=== PATIENT | female | born 1945 | race Caucasian/White ===

== ENCOUNTER 2017-01-19 06:45 | Day surgery (SDC) | payer MEDICARE, BC ==
--- NOTE | 2016-12-25 10:29 | HP ---
PREOPERATIVE HISTORY AND PHYSICAL: DATE OF ADMISSION/SURGERY: 01/19/17 [facility] DATE OF OFFICE VISIT/ENCOUNTER: 12/24/16 ATTENDING SURGEON: Nora Hernandez MD PROCEDURE: Right wrist ganglion cyst excision and carpal tunnel release. CHIEF COMPLAINT: Mass, right wrist; numbness and tingling, right hand. HISTORY OF PRESENT ILLNESS: This is a 71-year-old female who complains of numbness and tingling in her bilateral hands, worse on the right than on the left, and also a mass in her right wrist. She had a carpal tunnel release bilaterally back in 2002 and her symptoms resolved completely, but started up again approximately 6 months ago and are gradually getting worse. She has symptoms during the day as well as at night that awaken her. The mass has also gradually become more bothersome. She would like to have the mass removed and a redo carpal tunnel release on the right. PAST MEDICAL HISTORY: 1. Diabetes, type 2. 2. Hypercholesterolemia. 3. Depression. 4. Hypertension. 5. Diverticulitis. 6. History of anemia. PAST SURGICAL HISTORY: 1. Bilateral carpal tunnel release in 2002. 2. Shock wave kidney stone surgery in 2012. 3. Right total knee arthroplasty in 2010. 4. Partial thyroidectomy. 5. Hammertoe correction. 6. Cardiac catheterization in 2005. 7. Hysterectomy. MEDICATIONS: 1. Amitriptyline HCl 10 mg 2 tabs daily. 2. Bentyl 10 mg 1 tab t.i.d. 3. Calcium 600 plus vitamin D daily. 4. Cinnamon capsule daily. 5. Gabapentin 600 mg 2 to 3 tabs daily. 6. Glipizide 10 mg daily. 7. Ibuprofen 800 mg t.i.d. p.r.n. 8. Lipitor 40 mg 1 tab q.h.s. 9. Lisinopril 40 mg daily. 10. Metformin HCl 500 mg 2 q.a.m. and 2 at dinnertime. 11. Probiotic daily. 12. Zoloft 100 mg daily. ALLERGIES: CELEBREX causes GI upset; ERYTHROMYCIN, GI upset; FLAGYL, GI upset. FAMILY MEDICAL HISTORY: Cardiac disease, gallbladder cancer, and diabetes. 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 She denies tobacco and recreational drug use. She admits to alcohol use on rare occasion. REVIEW OF SYSTEMS: General: Negative for fevers, chills, or night sweats. No known anesthesia problems. HEENT: Negative for headache, lightheadedness, or syncopal episodes. Integumentary: Negative for abrasions, lesions, or open wounds. Cardiothoracic: Positive for hypertension. Negative for chest pain, palpitations, or edema. Pulmonary: Negative for shortness of breath with exertion, chronic cough, or COPD. GI: Negative for nausea, vomiting, diarrhea, constipation, or GERD. : Positive for history of UTIs and history of kidney stones. Negative for nocturia, urinary frequency or urgency. Musculoskeletal: Positive for current complaints, otherwise negative. Neurological: Negative for history of seizure, stroke, or epilepsy. Endocrine: Positive for diabetes and history of thyroid issues. Hematologic: Positive for history of anemia. Negative for easy bruising, excessive bleeding, or history of DVT. Infectious Disease: Negative for history of MRSA, hepatitis C, or HIV. PHYSICAL EXAMINATION GENERAL: Well-developed, well-nourished, 71-year-old female in no acute distress. VITAL SIGNS: Height 5 feet 5 inches, weight 232 pounds. Pulse rate 91, blood pressure 129/68. HEENT: Normocephalic, atraumatic. Pupils are equal, round, and reactive to light and accommodation. Extraocular movements are intact. NECK: Supple. No palpable lymph nodes. Throat is clear. PULMONARY: Lungs are clear to auscultation bilaterally. No wheezes, rales, or rhonchi. CARDIOTHORACIC: Regular rate and rhythm. S1, S2. No murmurs, rubs, or gallops. ABDOMEN: Positive bowel sounds. Soft, nontender. MUSCULOSKELETAL: On exam of her right wrist and hand, she has a well-healed carpal tunnel scar in the palm of the hand, intact sensation to light touch. Positive Tinel's sign at the median nerve. She had good range of motion of her wrist. She has full flexion and extension of her fingers. There is a 1-cm diameter cystic mass on the volar radial aspect of her wrist. It is mildly tender with palpation. There is a negative Tinel's at the cyst. NEUROLOGICAL: Alert and oriented x3. Cranial nerves II through XII are intact. Sensation is intact to light touch. IMPRESSION: Right carpal tunnel syndrome, recurrent and right wrist ganglion. PLAN: The patient is scheduled to undergo a right wrist ganglion cyst excision and a carpal tunnel release with Dr. Hernandez on 01/19/17. We will see her back in the office 10 to 14 days postop for followup and suture removal. A prescription for Ultracet was e-scribed to the patient's pharmacy for postoperative pain management. JER WALDRON [id number]/[facility] #: [id number] EMMANUELLE
[~2017-01-19 06:45] MED LIST: Buffered Lidocaine 1% SYRIN* 3 ML/SYR SYRINGE INTRADERM ONE
[2017-01-19] MEDS ORDERED: Lidocaine 1% INJ* 10 MG/ML 30 ML SDV ONE (07:17)
[2017-01-19] MEDS ORDERED: fentaNYL* 50 MCG/ML 2 ML VIAL (100 MCG VIAL) ONE (07:33)
[2017-01-19] MEDS ORDERED: Midazolam* 1 MG/ML 2 ML VIAL (2 MG) ONE (07:33)
[2017-01-19] MEDS ORDERED: Propofol* 10 MG/ML 20 ML BTL IV PUSH ONE (07:34)
[2017-01-19 08:32] VITALS: BP 132/74
--- NOTE | 2017-01-19 21:37 | OP ---
DATE OF OPERATION: 01/19/17 [facility] DATE OF : 49 SURGEON: Nora Hernandez MD CLEAN UP PERSON: JER Pham ANESTHESIOLOGIST: Brendon Maldonado DO ANESTHESIA: Local MAC. PRE-OP DIAGNOSES: Right carpal tunnel syndrome and right wrist mass. POST-OP DIAGNOSES: Right carpal tunnel syndrome and right wrist mass. OPERATIVE PROCEDURE: Removal of right wrist mass and right carpal tunnel release. ESTIMATED BLOOD LOSS: Zero. TOURNIQUET TIME: About 20 minutes. INDICATION FOR PROCEDURE: Elisa is a 71-year-old female with a painful mass on the volar radial aspect of the right wrist and symptoms of recurring carpal tunnel syndrome. She presents for carpal tunnel release and mass excision in the right wrist. DESCRIPTION OF PROCEDURE: The patient was brought to the operating room, was given a sedation anesthetic and a local infiltration total of 10 cc of 1% plain lidocaine. Skin of her right hand and forearm was prepped and draped in the usual sterile fashion. The hand and forearm were exsanguinated and the tourniquet elevated to 250 mmHg. A Chevron incision was made centered over the mass and we dissected bluntly through the subcutaneous tissue. 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 It was removed in its entirety and sent for pathology. Next, a longitudinal incision was made in the previous scar in the palm of the hand. We dissected sharply through the subcutaneous tissue down to the transverse carpal ligament. The ligament was divided sharply with a knife and then more proximally with the scissors. The nerve was dissected free from the surrounding tissue and there was an area of moderate compression of the mid portion of the ligament. The wounds were irrigated and the skin edges reapproximated with 4-0 nylon suture. The wound was dressed with Xeroform, 4x4 , Webril and an Pasha wrap. The patient tolerated the procedure well, was brought to the recovery room in good condition. [id number]/[facility] #: [id number] MTDD
== END 2017-01-19 08:50 | disposition home or self-care (01) ==
LOC: OREAST 06:45
PROVIDERS: ATTEND Orthopaedic Surgery
DX: G56.01 Carpal tunnel syndrome, right upper limb (principal); D21.11 Benign neoplasm of connective and other soft tissue of right upper limb, including shoulder; E11.8 Type 2 diabetes mellitus with unspecified complications; Z79.84 Long term (current) use of oral hypoglycemic drugs; I10 Essential (primary) hypertension; G47.33 Obstructive sleep apnea (adult) (pediatric); D64.9 Anemia, unspecified
CPT/HCPCS: 88304; J2001; J2250; J2704; J3010

== ENCOUNTER 2017-09-03 12:48 | Emergency (ER) | payer MEDICARE, BC ==
[2017-09-03 13:27] VITALS: BP 135/62
--- NOTE | 2017-09-03 14:31 | UC ---
Throat Pain/Nasal Klever HPI - HPI Summary HPI Summary: Sore throat, sinus pain and congestion cough and nausea - History of Current Complaint Chief Complaint: UCGeneralIllness Stated Complaint: SORE THROAT Time Seen by Provider: 09/03/17 14:23 Hx Obtained From: Patient ?: No Onset/Duration: Gradual Onset, Lasting Weeks, Still Present, Worse Since - past 2-3 days Severity: Moderate Cough: None Associated Signs & Symptoms: Positive: Sinus Discomfort - Allergies/Home Medications Allergies/Adverse Reactions: Allergies Allergy/AdvReac Type Severity Reaction Status Date / Time Erythromycin Allergy Severe GI PROBLEMS Verified 09/03/17 13:27 Metronidazole [From Flagyl] Allergy Severe GI PROBLEMS Verified 09/03/17 13:27 Celecoxib [From Celebrex] Allergy Mild GI Upset Verified 09/03/17 13:27 PMH/Surg Hx/FS Hx/Imm Hx Previously Healthy: No Endocrine History: Diabetes, Dyslipidemia Cardiovascular History: Hypertension GI/ History: Gastroesophageal Reflux - Surgical History Surgical History: Yes Surgery Procedure, Year, and Place: hysterectomy, 1997. umbilical hernia repair , Lt inguinal hernia repair, 02/2010,. Bowel resection-12/2007, AVM's cauterized in [place], Thyroid & Parathyroid 11/2006, Hammer Toe Right, 2005. carpal tunnel levi, 2002. right total knee, 2011, [place] foot-01/2006,. Cardiac Cath-11/2005,. Carpal tunnel Right wrist10/2002,. Left Carpal tunel-03/2002, Arthroscopy. Right knee-03/1998,. Right Total Knee-. - Family History Known Family History: Positive: None - Social History Occupation: Retired Lives: With Family Alcohol Use: Rare Alcohol Amount: 2 per year Substance Use Type: None Smoking Status (MU): Never Smoked Tobacco Have You Smoked in the Last Year: No Review of Systems Constitutional: Chills, Fatigue Skin: Negative Eyes: Negative ENT: Sore Throat, Nasal Discharge, Sinus Congestion Respiratory: Negative Cardiovascular: Negative Gastrointestinal: Negative Genitourinary: Negative Motor: Negative Neurovascular: Negative Musculoskeletal: Negative Neurological: Negative Psychological: Negative Is Patient Immunocompromised?: No All Other Systems Reviewed And Are Negative: Yes Physical Exam Triage Information Reviewed: Yes Appearance: No Pain Distress, Well-Nourished, Ill-Appearing - mild Vital Signs: Initial Vital Signs Temp 97.7 F 09/03/17 13:22 Pulse 91 09/03/17 13:22 Resp 14 09/03/17 13:22 BP 135/62 09/03/17 13:22 Pulse Ox 99 09/03/17 13:22 Vital Signs Reviewed: Yes Eye Exam: Normal Eyes: Positive: Conjunctiva Clear ENT Exam: Normal ENT: Positive: Normal ENT inspection, Hearing grossly normal, Pharyngeal erythema, Nasal congestion, Nasal drainage, TMs normal, Uvula midline. Negative : Muffled voice, Hoarse voice, Dental tenderness, Sinus tenderness Dental Exam: Normal Neck exam: Normal Neck: Positive: Supple, Nontender, Enlarged Nodes @ Respiratory Exam: Normal Respiratory: Positive: Chest non-tender, Lungs clear, Normal breath sounds, No respiratory distress, No accessory muscle use Cardiovascular Exam: Normal Cardiovascular: Positive: RRR, No Murmur, Pulses Normal, Brisk Capillary Refill Musculoskeletal Exam: Normal Musculoskeletal: Positive: Strength Intact, ROM Intact, No Edema Neurological Exam: Normal Neurological: Positive: Alert, Muscle Tone Normal Psychological Exam: Normal Skin Exam: Normal Throat Pain/Nasal Course/Dx - Course Assessment/Plan: zithromax, increase fluids, follow with pcp - Differential Dx/Diagnosis Provider Diagnoses: Upper respiratory infection Discharge - Discharge Plan Condition: Stable Disposition: HOME Prescriptions: Azithromycin TAB* [Zithromax TAB (Z-ARMIN) 250 mg #6 tabs] 2 tab PO .TODAY, THEN 1 DAILY #1 armin Patient Education Materials: Pharyngitis (ED), Upper Respiratory Infection (ED) Referrals: Naeem Laurent MD [Primary Care Provider] - If Needed
== END 2017-09-03 14:39 | disposition home or self-care (01) ==
LOC: UCCORT 12:48
DX: J06.9 Acute upper respiratory infection, unspecified (principal)
CPT/HCPCS: 87651; 99212; G0463

== ENCOUNTER 2017-09-19 14:05 | Emergency (ER) | payer MEDICARE, BC ==
[2017-09-19 17:01] VITALS: BP 143/63
--- NOTE | 2017-09-19 17:28 | UC ---
Abdominal Pain Female HPI - HPI Summary HPI Summary: Abd pain with nausea no BM from before 09/13/17 has tried multiple does of laxatives with out relief---Similar sx in past resulting in obstruction and bowel resection - History of Current Complaint Chief Complaint: UCGI Stated Complaint: BOWEL COMPLAINT Time Seen by Provider: 09/19/17 16:57 Hx Obtained From: Patient ?: No Onset/Duration: Gradual Onset, Lasting Days, Still Present Timing: Constant Severity Initially: Mild Severity Currently: Moderate Pain Intensity: 3 Pain Scale Used: 0-10 Numeric Location: Diffuse Radiates: No Character: Cramping Aggravating Factor(s): Nothing Alleviating Factor(s): Nothing Associated Signs and Symptoms: Positive: Negative Allergies/Adverse Reactions: Allergies Allergy/AdvReac Type Severity Reaction Status Date / Time Erythromycin Allergy Severe GI PROBLEMS Verified 09/19/17 17:01 Metronidazole [From Flagyl] Allergy Severe GI PROBLEMS Verified 09/19/17 17:01 Celecoxib [From Celebrex] Allergy Mild GI Upset Verified 09/19/17 17:01 PMH/Surg Hx/FS Hx/Imm Hx Previously Healthy: No Endocrine History: Diabetes, Dyslipidemia Cardiovascular History: Hypertension Psychological History: Anxiety - Surgical History Surgical History: Yes Surgery Procedure, Year, and Place: hysterectomy, 1997. umbilical hernia repair , Lt inguinal hernia repair, 02/2010,. Bowel resection-12/2007, AVM's cauterized in [place] Bow, Thyroid & Parathyroid 11/2006, Hammer Toe Right, 2005. carpal tunnel levi, 2002. right total knee, 2011, [place] foot-01/2006,. Cardiac Cath-11/2005,. Carpal tunnel Right wrist10/2002,. Left Carpal tunel-03/2002, Arthroscopy. Right knee-03/1998,. Right Total Knee-. - Family History Known Family History: Positive: None - Social History Occupation: Retired Lives: With Family Alcohol Use: Rare Alcohol Amount: 2 per year Substance Use Type: None Smoking Status (MU): Never Smoked Tobacco Have You Smoked in the Last Year: No - Immunization History Most Recent Influenza Vaccination: [id number] Review of Systems Constitutional: Negative Skin: Negative Eyes: Negative ENT: Negative Respiratory: Negative Cardiovascular: Negative Gastrointestinal: Negative, Abdominal Pain, Nausea, Other - Constipation Genitourinary: Negative Motor: Negative Neurovascular: Negative Musculoskeletal: Negative Neurological: Negative Psychological: Negative Is Patient Immunocompromised?: No All Other Systems Reviewed And Are Negative: Yes Physical Exam Triage Information Reviewed: Yes Appearance: Well-Appearing, No Pain Distress, Obese Vital Signs: Initial Vital Signs Temp 97.7 F 09/19/17 16:54 Pulse 95 09/19/17 16:54 Resp 16 09/19/17 16:54 BP 143/63 09/19/17 16:54 Pulse Ox 100 09/19/17 16:54 Vital Signs Reviewed: Yes Eye Exam: Normal Eyes: Positive: Conjunctiva Clear ENT Exam: Normal ENT: Positive: Normal ENT inspection, Hearing grossly normal. Negative: Nasal congestion, Trismus, Muffled voice, Hoarse voice, Dental tenderness Dental Exam: Normal Neck exam: Normal Neck: Positive: Supple, Nontender, No Lymphadenopathy Respiratory Exam: Normal Respiratory: Positive: Chest non-tender, Lungs clear, Normal breath sounds, No respiratory distress, No accessory muscle use Cardiovascular Exam: Normal Cardiovascular: Positive: RRR, No Murmur, Pulses Normal, Brisk Capillary Refill Abdominal Exam: Normal Abdomen Description: Positive: No Organomegaly, Soft, Distended. Negative: CVA Tenderness (R), CVA Tenderness (L), Hepatomegaly, McBurney's Point Tenderness, Peritoneal Signs, Pulsatile Mass Bowel Sounds: Positive: Present Musculoskeletal Exam: Normal Musculoskeletal: Positive: Strength Intact, ROM Intact, No Edema Neurological Exam: Normal Neurological: Positive: Alert, Muscle Tone Normal Psychological Exam: Normal Skin Exam: Normal Abd Pain Female Course/Dx - Course Course Of Treatment: NPO to [facility] ED for further evaluation - Differential Dx/Diagnosis Differential Diagnosis: Bowel Obstruction Provider Diagnoses: Constipation, Nausea - Physician Notification/Consults Discussed Care of Patient With: Kaleb Francis MD Time Discussed With Above Provider: 17:25 Instructed by Provider To: Transfer Discharge - Discharge Plan Condition: Stable Disposition: OTHER Discharge Disposition Comment: [facility] by Private [facility]Ar Patient Education Materials: Constipation (ED), Bowel Obstruction (ED) Referrals: Naeem Laurent MD [Primary Care Provider] - Additional Instructions: Nothing to eat or Drink Report Directly to the Emergency Department At [facility] for further evaluation and care
== END 2017-09-19 17:21 ==
LOC: UCCORT 14:05
DX: K59.00 Constipation, unspecified (principal); R11.0 Nausea; E11.9 Type 2 diabetes mellitus without complications; E78.5 Hyperlipidemia, unspecified; I10 Essential (primary) hypertension; F31.9 Bipolar disorder, unspecified; E66.9 Obesity, unspecified; Z88.1 Allergy status to other antibiotic agents; Z88.8 Allergy status to other drugs, medicaments and biological substances
CPT/HCPCS: 99212; G0463